=== PATIENT | female | born 1965 | race African-American/Black ===

== ENCOUNTER 2018-03-06 14:32 | Emergency (ER) | payer SELFPAY ==
[~2018-03-06] VITALS: Ht 149.9 cm; Wt 82.0 kg
[2018-03-06] MEDS ORDERED: ACETAMINOPHEN 325MG TABLET PO ONE (20:00)
[2018-03-06] MEDS ORDERED: KETOROLAC 30MG/ML VIAL IM ONE (20:00)
[2018-03-06 20:15] VITALS: BP 145/70
== END 2018-03-06 20:17 | disposition home or self-care (01) ==
LOC: ER 14:32
DX: M25.561 Pain in right knee (principal)
CPT/HCPCS: 73562; 99284